=== PATIENT | female | born 1960 | race Caucasian/White ===

== ENCOUNTER 2016-04-16 18:58 | Emergency (ER) | payer BC, OTHER ==
[~2016-04-16] VITALS: Ht 167.6 cm; Wt 100.9 kg
[~2016-04-16 18:58] MED LIST: ASPIRIN 32325 MG/TAB PO; ASPIRIN 81M81 MG/TA2 PO; BP MED; CELEXA 20MG20 MG/TAB PO; CELEXA40 MG PO; CITALOPRAM40 MG PO; COZAAR 25MG25 MG/TAB PO; FORT1000TA PO; GLUCOPHAGE1000 MG PO; IMODIUM 2MG CAPS2 MG PO; JANUMET 500 MG-1 TAB PO; LIPITOR 80MG80 MG PO; LISINOPRIL10 MG PO; LORTAB 5/500 501 TAB PO; NORCO 325 MG-51 TAB PO; NORCO 325 MG-7.1 TAB PO; OMEPRAZOLE20 MG PO; PLAVIX 75MG TAB75 MG PO; PRILOSEC 20MG20 MG PO; PRILOSEC40 MG PO; TOPROL XL 25MG25 MG PO; ULTRAM 50MG TAB50 MG PO; VICTOZA6 MG/ML INJ
[2016-04-16 19:00] VITALS: BP 168/89; PULSE 94; TEMP 97.8
[2016-04-16] MEDS ORDERED: JANUMXR1000-50 PO ×2 (19:04)
[2016-04-16] MEDS ORDERED: VICTOZA6 MG/ML SQ (19:04)
[2016-04-16] MEDS ORDERED: IMODIUM A-D2 MG PO (19:05)
[2016-04-16] MEDS ORDERED: PRILOSEC 20MG20 MG PO (19:05)
[2016-04-16] MEDS ORDERED: COZAAR100 MG PO (19:05)
[2016-04-16] MEDS ORDERED: CELEXA40 MG PO (19:05)
[2016-04-16] MEDS ORDERED: ASPIRIN 81M81 MG/TA2 PO (19:06)
== END 2016-04-16 20:12 | disposition home or self-care (01) ==
LOC: COL.ER 18:58
DX: R04.0 Epistaxis (principal); I10 Essential (primary) hypertension; E11.9 Type 2 diabetes mellitus without complications; I25.2 Old myocardial infarction; Z79.82 Long term (current) use of aspirin

== ENCOUNTER → 2016-06-05 | Outpatient (CLI) | payer BC ==
[~2016-06-05] MED LIST changes: +COZAAR100 MG PO; +IMODIUM A-D2 MG PO; +JANUMXR1000-50 PO; +VICTOZA6 MG/ML SQ
== END ==
LOC: MC.RAD 09:57
DX: Z12.31 Encounter for screening mammogram for malignant neoplasm of breast (principal)

== ENCOUNTER → 2017-07-23 | Outpatient (CLI) | payer BC | LOC: MC.RAD 14:25 | DX: Z12.31 Encounter for screening mammogram for malignant neoplasm of breast (principal) ==

== ENCOUNTER 2018-01-02 20:09 | Emergency (ER) | payer BC ==
[2018-01-02 20:15] VITALS: BP 142/71; TEMP 97.9
[2018-01-02] MEDS ORDERED: CEPHALEXIN500 M1 PO (22:45)
[2018-01-02 23:00] VITALS: PULSE 90
== END 2018-01-02 23:00 | disposition home or self-care (01) ==
LOC: COL.ER 20:09
DX: S61.211A Laceration without foreign body of left index finger without damage to nail, initial encounter (principal); I25.2 Old myocardial infarction; E11.9 Type 2 diabetes mellitus without complications; Z79.82 Long term (current) use of aspirin; Z79.84 Long term (current) use of oral hypoglycemic drugs; Z79.02 Long term (current) use of antithrombotics/antiplatelets; W26.0XXA Contact with knife, initial encounter; Y92.009 Unspecified place in unspecified non-institutional (private) residence as the place of occurrence of the external cause

== ENCOUNTER 2018-01-12 13:18 | Emergency (ER) | payer BC ==
[~2018-01-12 13:18] MED LIST changes: +CEPHALEXIN500 M1 PO
[2018-01-12 13:23] VITALS: BP 119/56; PULSE 80; TEMP 98.7
== END 2018-01-12 13:26 | disposition home or self-care (01) ==
LOC: COL.ER 13:18
DX: S61.412D Laceration without foreign body of left hand, subsequent encounter (principal); X58.XXXD Exposure to other specified factors, subsequent encounter

== ENCOUNTER → 2018-08-06 | Outpatient (CLI) | payer BC | LOC: MC.RAD 14:39 | DX: Z12.31 Encounter for screening mammogram for malignant neoplasm of breast (principal) ==

== ENCOUNTER 2020-04-07 10:23 | Emergency (ER) | payer BC ==
[~2020-04-07] VITALS: Ht 167.6 cm; Wt 95.5 kg
[2020-04-07 10:52] VITALS: TEMP 98
[2020-04-07] MEDS ORDERED: NORCO 325 MG-51 TAB PO (12:56)
[2020-04-07 13:01] VITALS: BP 147/66; PULSE 78
== END 2020-04-07 13:13 | disposition home or self-care (01) ==
LOC: COL.ER 10:23
DX: S20.20XA Contusion of thorax, unspecified, initial encounter (principal); E11.9 Type 2 diabetes mellitus without complications; I25.10 Atherosclerotic heart disease of native coronary artery without angina pectoris; Z90.49 Acquired absence of other specified parts of digestive tract; Z88.1 Allergy status to other antibiotic agents; Z79.82 Long term (current) use of aspirin; Z79.84 Long term (current) use of oral hypoglycemic drugs; W01.0XXA Fall on same level from slipping, tripping and stumbling without subsequent striking against object, initial encounter
CPT/HCPCS: J1170; J2550

== ENCOUNTER → 2020-08-16 | Outpatient (CLI) | payer BC | LOC: MC.RAD 07:27 | DX: Z12.31 Encounter for screening mammogram for malignant neoplasm of breast (principal) ==

== ENCOUNTER → 2021-12-21 | Outpatient (CLI) | payer BC | LOC: MC.RAD 07:47 | DX: Z12.31 Encounter for screening mammogram for malignant neoplasm of breast (principal) ==